=== PATIENT | male | born 2000 | race Caucasian/White ===

== ENCOUNTER 2020-12-19 13:23 | Outpatient (REF) | payer OTHER, SELFPAY | END 2020-12-19 13:24 | disposition home or self-care (01) | LOC: HO.LAB 13:23 | PROVIDERS: Visit Provider Internal Medicine | DX: Z20.822 Contact with and (suspected) exposure to COVID-19 (principal) | CPT/HCPCS: 36415; C9803; U0003 ==

== ENCOUNTER 2021-02-20 13:39 | Outpatient (REF) | payer OTHER, SELFPAY | END 2021-02-20 13:40 | disposition home or self-care (01) | LOC: HO.LAB 13:39 | PROVIDERS: Visit Provider Internal Medicine | DX: Z20.822 Contact with and (suspected) exposure to COVID-19 (principal) | CPT/HCPCS: 36415; C9803; U0003; U0005 ==

== ENCOUNTER 2021-12-05 11:35 | Outpatient (REF) | payer OTHER, SELFPAY ==
[2021-12-05 13:40] LABS: Binax Now Covid-19 Ag Negative (Negative)
[2021-12-05 13:41] LABS: Binax Internal Control QC Valid
== END 2021-12-05 11:36 | disposition home or self-care (01) ==
LOC: HO.LAB 11:35
PROVIDERS: Visit Provider Internal Medicine
DX: Z20.822 Contact with and (suspected) exposure to COVID-19 (principal)
CPT/HCPCS: C9803